=== PATIENT | female | born 1995 | race Two or more races ===

== ENCOUNTER 2022-09-12 11:48 | Emergency (ER) | payer MEDICAID ==
[~2022-09-12] VITALS: Ht 157.5 cm; Wt 105.0 kg
[2022-09-12] MEDS ORDERED: SODIUM CHLORIDE 0.9% 500 ML IV ONE (13:30)
[2022-09-12 14:09] LABS: Basophils # (auto) 0.1 10 ^3/uL (0-0.2); Basophils % (auto) 0.6 % (0.0-2.0); Eosinophils # (auto) 0.5 10 ^3/uL (0-0.8); Eosinophils % (auto) 4.5 % (0.0-7.0); Hematocrit 43.1 % (36.0-46.0); Hemoglobin 14.2 g/dL (12.2-16.2); Lymphocytes # (auto) 1.8 10 ^3/uL (0.4-5.4); Mean Corpuscular Hemoglobin 28.9 pg (28.0-32.0); Mean Corpuscular Volume 87.4 fL (80.0-100.0); Monocytes # (auto) 0.8 10 ^3/uL (0-1.3); Monocytes % (auto) 7.2 % (0.0-12.0); Neutrophils # (auto) 7.9 10 ^3/uL (1.6-8.6); Neutrophils % (auto) 71.7 % (37.0-80.0); Nucleated Red Blood Cells % 0.1 %; Red Blood Cells 4.93 10^6/uL (4.0-5.20); Red Cell Distribution Width 13.3 % (11.8-14.3)
[2022-09-12] MEDS ORDERED: ONDANSETRON HCL 4 MG/2 ML VIAL IV ONE (14:15)
[2022-09-12] MEDS ORDERED: MORPHINE SULFATE 4 MG/ML SYR/VIAL IV ONE (14:15)
[2022-09-12 14:30] LABS: INR 0.98 (0.9-1.15); Partial Thromboplastin Time 28.1 sec (24.6-33.4)
[2022-09-12 15:17] LABS: Alanine Aminotransferase 55 U/L (13-56); Alkaline Phosphatase 198 U/L (45-117); Anion Gap 9 (5-15); Aspartate Aminotransferase 43 U/L (15-37); BUN/Creatinine Ratio 8.8; Bilirubin, Total 0.8 mg/dL (0.2-1.0); Blood Urea Nitrogen 5 mg/dL (7-18); Calcium 9.3 mg/dL (8.5-10.1); Carbon Dioxide 21 mmol/L (21-32); Chloride 112 mmol/L (98-107); GFR African American 164 mL/min; GFR Non-African American 135 mL/min; Glucose 85 mg/dL (74-106); Potassium 3.5 mmol/L (3.5-5.1); Sodium 142 mmol/L (136-145)
[2022-09-12 15:18] LABS: Albumin 3.8 g/dL (3.4-5.0)
[2022-09-12] MEDS ORDERED: TRAM-297 PO (15:22)
[2022-09-12] MEDS ORDERED: HYDROmorphone HCL 2 MG/ML VL/or syr IV ONE (16:00)
[2022-09-12 17:01] VITALS: BP 163/88
[2022-09-12 17:16] LABS: Urine Bacteria NONE SEEN /hpf (None Seen); Urine Blood TRACE /uL (Negative); Urine Specific Gravity 1.005 (1.001-1.035); Urine WBC 1 /hpf (0 - 5)
== END 2022-09-12 17:30 | disposition home or self-care (01) ==
LOC: ER 11:48
DX: R51.9 Headache, unspecified (principal); D72.829 Elevated white blood cell count, unspecified; J45.909 Unspecified asthma, uncomplicated; I10 Essential (primary) hypertension; Z87.891 Personal history of nicotine dependence; Z79.01 Long term (current) use of anticoagulants
CPT/HCPCS: 36415; 70450; 80053; 81001; 85025; 85610; 85730; 96361; 96374; 96375; 99285; J1170; J2270; J2405; J7040